=== PATIENT | female | born 1990 | race Caucasian/White ===

== ENCOUNTER 2017-01-29 23:20 | Emergency (ER) | payer MEDICAID ==
[~2017-01-29] VITALS: Ht 154.9 cm; Wt 72.7 kg
[2017-01-30 00:20] VITALS: Ht 154.9 cm; Wt 72.7 kg
--- NOTE | 2017-01-30 03:26 | ERD ---
ER Documentation Chief Complaint Date/Time DATE: 01/30/17 TIME: 03:24 Chief Complaint LOWER ABD PAIN RADIATING TO BACK TODAY. 18 WKS PREG. +NAUSEA HPI This 26-year-old female presents here in emergency department for complaints of lower abdominal pain bilateral back pain started today. Patient describes the pain as cramping pain, 6/10 scale, accompanied with nausea. Patient denies any vomiting. Patient denies any diarrhea or constipation.. Patient denies any vaginal bleeding. Patient is approximately 18 weeks . EDC is July 05 2017. ROS All systems reviewed and are negative except as per history of present illness. Medications Home Meds Reported Medications [none] Unknown Strength No Conflict Check 01/30/17 Allergies Allergies: Coded Allergies: No Known Allergies (Verified Allergy, Unknown, NONE, 06/21/08) PMhx/Soc Medical and Surgical Hx: pt denies Medical Hx, pt denies Surgical Hx History of Surgery: No Anesthesia Reaction: No Hx Neurological Disorder: No Hx Respiratory Disorders: No Hx Cardiac Disorders: No Hx Psychiatric Problems: No Hx Miscellaneous Medical Probl: No Hx Alcohol Use: No Hx Substance Use: No Hx Tobacco Use: No Smoking Status: Never smoker FmHx Family History: No coronary disease, No diabetes, No other Physical Exam Vitals Vital Signs Date Time Temp Pulse Resp B/P Pulse Ox O2 Delivery O2 Flow Rate FiO2 01/30/17 00:20 98.1 86 20 114/70 100 Physical Exam GENERAL: The patient is well developed and appropriate for usual state of health, in no apparent distress. CHEST: Clear to auscultation bilaterally. There are no rales, wheezes or rhonchi. HEART: Regular rate and rhythm. No murmurs, clicks, rubs or gallops. No S3 or S4. ABDOMEN: Soft, nontender and nondistended. Good bowel sounds. No rebound or guarding. No gross peritonitis. No gross organomegaly or masses. No Bower sign or McBurney point tenderness. BACK: No midline or flank tenderness. EXTREMITIES: Equal pulses bilaterally. There is no peripheral clubbing, cyanosis or edema. No focal swelling or erythema. Full range of motion. Grossly neurovascularly intact. NEURO: Alert and oriented. Cranial nerves 2-12 intact. Motor strength in all 4 extremities with 5/5 strength. Sensation grossly intact. Normal speech and gait. SKIN: There is no apparent rash or petechia. The skin is warm and dry. HEMATOLOGIC AND LYMPHATIC: There is no evidence of excessive bruising or lymphedema. No gross cervical, axillary, or inguinal lymphadenopathy. Result Diagram: 01/30/1731401/30/17314 Results 24 hrs Laboratory Tests Test 01/30/17 03:15 Alanine Aminotransferase (ALT/SGPT) 20IU/L Albumin 3.5g/dl Albumin/Globulin Ratio 1.06 Alkaline Phosphatase 76IU/L Anion Gap 15 Aspartate Amino Transf (AST/SGOT) 14IU/L Basophils # 0.010^3/ul Basophils % 0.1% Beta HCG, Quantitative 37741.0mIU/ml Blood Urea Nitrogen 11mg/dl Calcium Level 9.1mg/dl Carbon Dioxide Level 25mmol/L Chloride Level 105mmol/L Creatinine 0.67mg/dl Direct Bilirubin 0.00mg/dl Eosinophils # 0.110^3/ul Eosinophils % 0.8% Globulin 3.30g/dl Glucose Level 79mg/dl Hematocrit 34.9% Hemoglobin 11.7g/dl Indirect Bilirubin 0.0mg/dl Lymphocytes # 1.510^3/ul Lymphocytes % 20.0% Mean Corpuscular Hemoglobin 28.0pg Mean Corpuscular Hemoglobin Concent 33.5g/dl Mean Corpuscular Volume 83.5fl Mean Platelet Volume 12.1fl Monocytes # 0.610^3/ul Monocytes % 7.4% Neutrophils # 5.410^3/ul Neutrophils % 71.0% Nucleated Red Blood Cells # 0.010^3/ul Nucleated Red Blood Cells % 0.0/100WBC Platelet Count 89561^3/UL Potassium Level 3.9mmol/L Red Blood Count 4.1810^6/ul Red Cell Distribution Width 13.9% Sodium Level 141mmol/L Total Bilirubin 0.0mg/dl Total Protein 6.8g/dl Urine Bacteria RARE Urine Bilirubin NEGATIVE Urine Clarity CLEAR Urine Color LT. YELLOW Urine Glucose NEGATIVE% Urine Hemoglobin NEGATIVE Urine Ketones NEGATIVE Urine Leukocyte Esterase TRACE Urine Microscopic RBC 0-2/HPF Urine Microscopic WBC 10-25/HPF Urine Nitrite NEGATIVE Urine Specific [place] 1.020 Urine Squamous Epithelial Cells RARE Urine Total Protein NEGATIVE Urine Urobilinogen 0.2 E.U./dL Urine pH 7.0 White Blood Count 7.610^3/ul PROCEDURE: ULTRASOUND OBSTETRICAL CLINICAL INDICATION: 26-year-old female with pelvic pain. TECHNIQUE: Multiple sonographic images of the pelvis were obtained. The images were reviewed on a PACS workstation. COMPARISON: No prior studies are available for comparison. FINDINGS: The cervix is not well visualized. There is a single viable intrauterine gestation. Cardiac activity is present with 150 beats per minute. There is a variable presentation. Measurements were made in order to determine age. The results are as follows: BPD = 4.28 cm, HC = 15.76 cm, AC = 15.09 cm, FL = 2.91 cm. This yields and estimated gestational age of approximately 19 weeks 2 days. The estimated date of delivery is June 24, 2017. The EFW = 300 +/- 45 g. The placenta is anterior. There is no evidence for an abruption or placenta previa. There is an adequate amount of amniotic fluid with the maximal vertical pocket of 4.0 cm. IMPRESSION: Single viable intrauterine gestation of approximately 19 weeks 2 days. The estimated date of delivery is June 24, 2017 . .Quique Henderson MD, MD Date Time Electronically viewed and signed by .Quique Henderson MD, MD on 01/30/2017 03:57 .M/ CC: ZULLY LAN TELEPHONE OPERATOR Procedures/MDM Medical Decision Making: He shouldn't abdominal pain and back pain nonspecific at this time, possibly from the growing , musculoskeletal pain, patient has a trace of leukocytes in the urine but no symptoms of pyelonephritis. Most likely patient has urinary tract infection also. There is low suspicion for abdominal emergencies at this time. Patients abdominal exam is normal at this time. Ultrasound shows a viable at 19 weeks and 2 days. There is low suspicion for appendicitis, cholecystitis, abdominal aortic aneurysms or peritonitis at this time. There is low suspicion for sepsis. Patient appears well and is hemodynamically stable. Disposition: Home. Condition: Stable Prescription Tylenol Keflex Instructions: Patient is advised to take medications as prescribed. Patient is advised to rest, increase fluid intake and do good. Nail hygiene. Patient is advised that if symptoms are worse, severe abdominal pain, uncontrolled vomiting , high fever, severe flank pain, worst signs and symptoms, to return to the emergency department immediately. Otherwise, patient can follow up with OB doctor in 2 days, bedrest. Departure Diagnosis: Primary Impression: Abdominal pain Abdominal location: lower abdomen, unspecified Qualified Code: R10.30 - Lower abdominal pain Additional Impressions: UTI (urinary tract infection) Urinary tract infection type: acute cystitis Hematuria presence: without hematuria Qualified Code: N30.00 - Acute cystitis without hematuria Intrauterine Condition: Stable Patient Instructions: Pelvic Pain In : Unclear (2-3 Trimester), Understanding Urinary Tract Infections (UTIs) Additional Instructions: Patient is advised to take medications as prescribed. Patient is advised to rest , increase fluid intake and do good. Nail hygiene. Patient is advised that if symptoms are worse, severe abdominal pain, uncontrolled vomiting, high fever, severe flank pain, worst signs and symptoms, to return to the emergency department immediately. Otherwise, patient can follow up with OB doctor in 2 days, bedrest. ZULLY LAN NP Jan 30, 2017 03:26
[2017-01-30 03:34] LABS: ADD SCAN DIFF NO
[2017-01-30 03:37] LABS: BASOPHILS % 0.1 % (0.0-2.0); EOSINOPHILS # 0.1 10^3/ul (0.0-0.5); EOSINOPHILS % 0.8 % (0.0-7.0); HEMATOCRIT 34.9 % (37.0-47.0); HEMOGLOBIN 11.7 g/dl (12.0-16.0); LYMPHOCYTES # 1.5 10^3/ul (0.8-2.9); MEAN CORPUSCULAR HGB CONC 33.5 g/dl (32.0-37.0); MEAN CORPUSCULAR VOLUME 83.5 fl (82.0-101.0); MEAN PLATELET VOLUME 12.1 fl (7.4-10.4); MONOCYTE # 0.6 10^3/ul (0.3-0.9); MONOCYTES % 7.4 % (0.0-11.0); NEUTROPHIL # 5.4 10^3/ul (1.6-7.5); PLATELET COUNT 198 10^3/UL (140-415); RED BLOOD COUNT 4.18 10^6/ul (4.20-5.40); RED CELL DISTRIBUTION WIDTH 13.9 % (11.5-14.5); WHITE BLOOD COUNT 7.6 10^3/ul (4.8-10.8)
[2017-01-30 03:46] LABS: ALBUMIN 3.5 g/dl (3.3-4.9); POTASSIUM 3.9 mmol/L (3.5-5.1)
[2017-01-30 03:48] LABS: CREATININE 0.67 mg/dl (0.44-1.00)
[2017-01-30 03:49] LABS: ALBUMIN/GLOBULIN RATIO 1.06; TOTAL PROTEIN 6.8 g/dl (6.1-8.1)
[2017-01-30 03:50] LABS: CALCIUM 9.1 mg/dl (8.4-10.2)
--- NOTE | 2017-01-30 03:57 | RADRPT ---
PROCEDURE: ULTRASOUND OBSTETRICAL CLINICAL INDICATION: 26-year-old female with pelvic pain. TECHNIQUE: Multiple sonographic images of the pelvis were obtained. The images were reviewed on a PACS workstation. COMPARISON: No prior studies are available for comparison. FINDINGS: The cervix is not well visualized. There is a single viable intrauterine gestation. Cardiac activit y is present with 150 beats per minute. There is a variable presentation. Measurements were made in order to determine age. The results are as follows: BPD = 4.28 cm, HC = 15.76 cm, AC = 15.09 cm, FL = 2.91 cm. This yields and estimated gestational ag e of approximately 19 weeks 2 days. The estimated date of delivery is June 24, 2017. The EFW = 30 0 +/- 45 g. The placenta is anterior. There is no evidence for an abruption or placenta previa. There is an adequate amount of amniotic fluid with the maximal vertical pocket of 4.0 cm. IMPRESSION: Single viable intrauterine gestation of approximately 19 weeks 2 days. The estimated date of delive ry is June 24, 2017 . .Quique Henderson MD, Date Time Electronically viewed and signed by .Quique Henderson MD, MD on 01/30/2017 03:57 .M/
[2017-01-30 04:13] LABS: ADD UMIC YES; URINE BILIRUBIN (Dip) NEGATIVE (NEGATIVE); URINE BLOOD (Dip) NEGATIVE (NEGATIVE); URINE COLOR LT. YELLOW (YELLOW); URINE GLUCOSE (Dip) NEGATIVE (NEGATIVE); URINE KETONES (Dip) NEGATIVE (NEGATIVE); URINE LEUKOCYTE ESTERASE (Dip) TRACE (NEGATIVE); URINE NITRITE (Dip) NEGATIVE (NEGATIVE); URINE TOTAL PROTEIN (Dip) NEGATIVE (NEGATIVE); URINE UROBILINOGEN (Dip) 0.2 E.U./dL (0.1-1.0)
[2017-01-30 04:26] LABS: SQUAMOUS EPITHELIAL CELL,UR RARE; URINE RBCS 0-2 /HPF (0)
[2017-01-30 04:27] LABS: BACTERIA,URINE RARE
[2017-01-30] MEDS ORDERED: ACET500C5 PO (05:21)
[2017-01-30] MEDS ORDERED: CEPH-443 PO (05:21)
[2017-01-30 05:34] VITALS: BP 125/78; PULSE 86; RESP 16; TEMP 96.7
== END 2017-01-30 05:35 | disposition home or self-care (01) ==
LOC: FTE 23:20
DX: O26.892 Other specified pregnancy related conditions, second trimester (principal); R10.30 Lower abdominal pain, unspecified; O23.12 Infections of bladder in pregnancy, second trimester; R10.2 Pelvic and perineal pain; Z3A.19 19 weeks gestation of pregnancy
CPT/HCPCS: 36415; 76805; 80053; 81001; 84702; 85025; 86900; 86901; Z7502; 81003